=== PATIENT | male | born 1945 | race American Indian/Alaskan Native ===

== ENCOUNTER 2019-09-16 09:57 | Emergency (ER) | payer MEDICARE ==
[2019-09-16 10:08] VITALS: BP 155/103
[2019-09-16] MEDS ORDERED: predniSONE 20 MG TAB PO ONE (10:44)
--- NOTE | 2019-09-16 10:49 | Emergency Department Report ---
ED Rash HPI - HPI Chief Complaint: Skin Rash Stated Complaint: GOUT/RASH Time Seen by Provider: 09/16/19 10:42 Duration: 3 Days Location: Neck, Chest, Back, Abdomen, Upper Extremities, Lower Extremities Suspected Cause: Unknown Rash Symptoms: Yes Itching, No Facial Swelling, No Tongue/Oral Swelling, No Breathing Difficulties, No Choking Sensation, No Wheezing/Dyspnea, No Peeling, No Blistering, No Fever, No Lightheaded, No Malaise, No Myalgias Severity: moderate ED Review of Systems ROS: Stated complaint: GOUT/RASH Other details as noted in HPI Comment: All other systems reviewed and negative ED Past Medical Hx - Past Medical History Previous Medical History?: Yes Hx Hypertension: Yes Hx Diabetes: Yes Additional medical history: Gout. diverticulitis - Surgical History Past Surgical History?: Yes Additional Surgical History: Intestinal surgery - Social History Smoking Status: Never Smoker - Medications Home Medications: Home Medications Medication Instructions Recorded Confirmed Last Taken Type diphenhydrAMINE [Benadryl CAP] 25 mg PO Q6HR PRN #20 capsule 09/16/19 Unknown Rx predniSONE [Deltasone] 20 mg PO QDAY #5 tab 09/16/19 Unknown Rx Rash Exam - Exam General: Vital signs noted. No distress. Alert and acting appropriately. HEENT: No Periorbital Edema, No Conjuctival Injection, No Chemosis, No Perioral Edema, No Tongue Edema, No Uvular Edema, No Compromised Airway, No Drooling Lungs: Yes Good Air Exchange (Normal Breath Sounds), No Wheezes, No Ronchi, No Stridor, No Cough, No Labored Respirations, No Retractions, No Use of Accessory Muscles, No Other Abnormal Lung Sounds Heart: Yes Regular, No Murmur Front/Back of Body, Lg (Color): 1 - Large swelling at the elbow. Patient has full range of motion. The area swelling is fluctuant. There is no warmth or erythema are indurated skin. Skin: Yes Maculopapular Rash (diffusely on the patient's entire body sparing the face palms and soles. The rash on the back does have a Neo tree type distribution), Yes Erythema, No Weeping, No Tenderness, No Edema, No Encrustations Other: Positive: Abdomen Normal, Neurologic Normal, Musculoskeletal Normal ED Course Vital Signs 09/16/19 10:05 Temperature 97.9 F Pulse Rate 99 H Respiratory 16 Rate Blood Pressure 155/103 O2 Sat by Pulse 99 Oximetry ED Medical Decision Making - Medical Decision Making Patient's rash is a distribution that is very similar to pityriasis. Patient will be started on a low-dose of prednisone. Patient takes metformin daily and will have this increased to twice a day while on steroids. Patient also instructed on taking Benadryl. Patient referred to Dr. Arenas with orthopedics regarding the patient's olecranon bursitis. No acute intervention is needed at this time for the swelling of the elbow. Critical care attestation.: If time is entered above; I have spent that time in minutes in the direct care of this critically ill patient, excluding procedure time. ED Disposition Clinical Impression: Pityriasis in adult, Olecranon bursitis of right elbow Disposition: TO HOME OR SELFCARE Is pt being admited?: No Does the pt Need Aspirin: No Condition: Stable Instructions: Pityriasis rosea (ED), Elbow Bursitis (ED) Referrals: DANIEL ARENAS MD [Staff Physician] - 3-5 Days CANDACE MCFARLANE MD [Staff Physician] - 7-10 days (if your rash does not improve in a week ) Time of Disposition: 10:49
== END 2019-09-16 11:00 | disposition home or self-care (01) ==
LOC: ED 09:57
DX: M70.21 Olecranon bursitis, right elbow (principal); L21.0 Seborrhea capitis; I10 Essential (primary) hypertension; E11.9 Type 2 diabetes mellitus without complications
CPT/HCPCS: 99282; J7512

== ENCOUNTER 2020-02-16 13:51 | Emergency (ER) | payer MEDICARE ==
[2020-02-16] MEDS ORDERED: diphenhydrAMINE 50 MG/ML VIAL IV ONE (14:21)
[2020-02-16] MEDS ORDERED: SODIUM CHLORIDE 0.9% 1000 ML 1,000 ML IV ONE (14:21)
[2020-02-16] MEDS ORDERED: dexAMETHasone 20 MG/5 ML VIAL IV ONE (14:21)
[2020-02-16] MEDS ORDERED: FAMOTIDINE 20 MG/2 ML INJ IV ONE (14:21)
[2020-02-16 14:50] LABS: Mean Corpuscular Volume 74 fl (84-94)
[2020-02-16 14:58] LABS: Basophils # (Auto) 0.2 K/mm3 (0.0-0.1); Basophils % (Auto) 2.9 % (0.0-1.8); Eosinophils % (Auto) 0.4 % (0.0-4.3); Hematocrit 42.6 % (35.5-45.6); Hemoglobin 13.4 gm/dl (11.8-15.2); Lymphocytes # (Auto) 0.5 K/mm3 (1.2-5.4); Lymphocytes % (Auto) 6.6 % (13.4-35.0); Mean Corpuscular HGB Conc 31 % (32-34); Monocytes # (Auto) 0.5 K/mm3 (0.0-0.8); Monocytes % (Auto) 5.5 % (0.0-7.3); Platelet Count 397 K/mm3 (140-440); Red Blood Count 5.78 M/mm3 (3.65-5.03)
[2020-02-16 15:08] LABS: Albumin 3.6 g/dL (3.9-5); Calcium 9.5 mg/dL (8.4-10.2)
--- NOTE | 2020-02-16 15:13 | Emergency Department Report ---
ED Rash HPI - HPI Chief Complaint: Skin Rash Stated Complaint: RASH ALL OVER Time Seen by Provider: 02/16/20 14:20 Duration: 4 Days Location: Back, Abdomen, Upper Extremities, Lower Extremities Suspected Cause: Unknown Rash Symptoms: Yes Itching, No Facial Swelling, No Tongue/Oral Swelling, No Breathing Difficulties, No Choking Sensation, No Wheezing/Dyspnea, No Peeling, No Blistering, No Fever, No Lightheaded, No Malaise, No Myalgias Severity: moderate Other History: This is a 74-year-old male with a history of diabetes, gout and acid reflux who presents the ED complaining of generalized, red, itching rash for the past 4 days. Patient states that he went to his primary care doctor yesterday and was told follow-up to the ER. Patient states that rash is painful and itching for the past 4 days. Patient denies any difficulty swallowing. Patient states he may have come to contact with something he is allergic to he is unsure. Patient did note that his changed detergent in the home recently ED Review of Systems ROS: Stated complaint: RASH ALL OVER Other details as noted in HPI Comment: All other systems reviewed and negative ED Past Medical Hx - Past Medical History Previous Medical History?: Yes Hx Hypertension: Yes Hx Diabetes: Yes Additional medical history: Gout. diverticulitis - Surgical History Past Surgical History?: No Additional Surgical History: Intestinal surgery - Social History Smoking Status: Never Smoker Substance Use Type: None - Medications Home Medications: Home Medications Medication Instructions Recorded Confirmed Last Taken Type diphenhydrAMINE [Benadryl CAP] 25 mg PO Q6HR PRN #20 capsule 09/16/19 Unknown Rx predniSONE [Deltasone] 20 mg PO QDAY #5 tab 09/16/19 Unknown Rx Pramoxine HCl/Calamine [Calamine 1 applic TP DAILY #1 lotion 02/16/20 Unknown Rx Medicated Lotion] hydrOXYzine HCL [Atarax] 25 mg PO BID #20 tablet 02/16/20 Unknown Rx predniSONE [Deltasone] 10 mg PO QDAY #5 tab 02/16/20 Unknown Rx Rash Exam - Exam General: Vital signs noted. No distress. Alert and acting appropriately. HEENT: No Periorbital Edema, No Conjuctival Injection, No Chemosis, No Perioral Edema, No Tongue Edema, No Uvular Edema, No Compromised Airway, No Drooling Lungs: Yes Good Air Exchange (Normal Breath Sounds), No Wheezes, No Ronchi, No Stridor, No Cough, No Labored Respirations, No Retractions, No Use of Accessory Muscles, No Other Abnormal Lung Sounds Heart: Yes Regular, No Murmur Skin: Yes Urticarial Rash, Yes Maculopapular Rash, Yes Erythema, No Morbilliform rash, No Bulla(e), No Excoriations, No Weeping, No Tenderness, No Edema, No Encrustations, No Other Other: Positive: Abdomen Normal, Neurologic Normal, Musculoskeletal Normal ED Course Vital Signs 02/16/20 13:55 Temperature 98.2 F Pulse Rate 98 H Respiratory 18 Rate Blood Pressure 135/96 O2 Sat by Pulse 98 Oximetry ED Medical Decision Making - Lab Data Result diagrams: 02/16/20 14:32 02/16/20 14:32 Laboratory Last Values WBC 8.3 K/mm3 (4.5-11.0) 02/16/20 14:32 RBC 5.78 M/mm3 (3.65-5.03) H 02/16/20 14:32 Hgb 13.4 gm/dl (11.8-15.2) 02/16/20 14:32 Hct 42.6 % (35.5-45.6) 02/16/20 14:32 MCV 74 fl (84-94) L 02/16/20 14:32 MCH 23 pg (28-32) L 02/16/20 14:32 MCHC 31 % (32-34) L 02/16/20 14:32 RDW 20.0 % (13.2-15.2) H 02/16/20 14:32 Plt Count 397 K/mm3 (140-440) 02/16/20 14:32 Lymph % (Auto) 6.6 % (13.4-35.0) L 02/16/20 14:32 Grimes % (Auto) 5.5 % (0.0-7.3) 02/16/20 14:32 Eos % (Auto) 0.4 % (0.0-4.3) 02/16/20 14:32 Baso % (Auto) 2.9 % (0.0-1.8) H 02/16/20 14:32 Lymph # 0.5 K/mm3 (1.2-5.4) L 02/16/20 14:32 Grimes # 0.5 K/mm3 (0.0-0.8) 02/16/20 14:32 Eos # 0.0 K/mm3 (0.0-0.4) 02/16/20 14:32 Baso # 0.2 K/mm3 (0.0-0.1) H 02/16/20 14:32 Seg Neutrophils % 84.6 % (40.0-70.0) H 02/16/20 14:32 Seg Neutrophils # 7.0 K/mm3 (1.8-7.7) 02/16/20 14:32 Sodium 129 mmol/L (137-145) L 02/16/20 14:32 Potassium 4.5 mmol/L (3.6-5.0) 02/16/20 14:32 Chloride 97.8 mmol/L (98-107) L 02/16/20 14:32 Carbon Dioxide 14 mmol/L (22-30) L 02/16/20 14:32 Anion Gap 22 mmol/L 02/16/20 14:32 BUN 44 mg/dL (9-20) H 02/16/20 14:32 Creatinine 2.3 mg/dL (0.8-1.5) H 02/16/20 14:32 Estimated GFR 34 ml/min 02/16/20 14:32 BUN/Creatinine Ratio 19 % 02/16/20 14:32 Glucose 194 mg/dL (75-100) H 02/16/20 14:32 Calcium 9.5 mg/dL (8.4-10.2) 02/16/20 14:32 Total Bilirubin 0.40 mg/dL (0.1-1.2) 02/16/20 14:32 AST 17 units/L (5-40) 02/16/20 14:32 ALT 15 units/L (7-56) 02/16/20 14:32 Alkaline Phosphatase 141 units/L (35-129) H 02/16/20 14:32 Total Protein 7.4 g/dL (6.3-8.2) 02/16/20 14:32 Albumin 3.6 g/dL (3.9-5) L 02/16/20 14:32 Albumin/Globulin Ratio 0.9 % 02/16/20 14:32 Amylase 99 units/L (27-131) 02/16/20 14:32 Lipase 44 units/L (13-60) 02/16/20 14:32 - Medical Decision Making This 24-year-old male who presents with her dysuria, generalized petechial rash. All labs are within normal limits. Patient did have lab work completed at his primary care doctor's office yesterday. Lab findings from yesterday and today are about the same. I discussed with patient that this is most likely allergic dermatitis and to take medications as prescribed. Patient had no respiratory distress in the emergency department. Discussed with patient to follow-up with his primary care doctor. Discussed with the patient that all lab findings were within normal limits. L iver functions were normal. And his creatinine and BUN are still elevated as they were yesterday. Patient does report feeling better, reduced itching, prior to discharge I discussed with the patient that if he does not have a investor relations coordinator referral to be given today into follow-up. Critical care attestation.: If time is entered above; I have spent that time in minutes in the direct care of this critically ill patient, excluding procedure time. ED Disposition Clinical Impression: Allergic dermatitis, Urticaria, Acute kidney insufficiency Disposition: - TO HOME OR SELFCARE Is pt being admited?: No Does the pt Need Aspirin: No Condition: Stable Instructions: Urticaria (ED), Acute Rash (ED) Additional Instructions: Make sure to follow up with your primary care physician as discussed. Take all your medications as you've been prescribed. Your liver tests were abnormal. If you have any worsening symptoms or develop new symptoms please return to ED immediately. Prescriptions: hydrOXYzine HCL [Atarax] 25 mg PO BID #20 tablet Pramoxine HCl/Calamine [Calamine Medicated Lotion] 1 applic TP DAILY #1 lotion predniSONE [Deltasone] 10 mg PO QDAY #5 tab Referrals: PRIMARY CAREMD [Primary Care Provider] - 3-5 Days MINDY MCNEIL MD, PHD [Referring] - 3-5 Days [facility] [Provider Group] - 3-5 Days [facility] [Provider Group] - 3-5 Days Forms: Accompanied Note, Work/School Release Form(ED) Time of Disposition: 16:33
[2020-02-16 17:05] VITALS: BP 138/94
== END 2020-02-16 16:51 | disposition home or self-care (01) ==
LOC: ED 13:51
DX: L23.9 Allergic contact dermatitis, unspecified cause (principal); N28.9 Disorder of kidney and ureter, unspecified
CPT/HCPCS: 36415; 80053; 82150; 83690; 85025; 96374; 96375; 99283; J1100; J1200; J7030; 96361